=== PATIENT | female | born 1985 | race African-American/Black ===

== ENCOUNTER 2022-05-20 08:14 | Emergency (ER) | payer MEDICAID ==
[2022-05-20] MEDS ORDERED: Lorazepam 1 MG TAB ONE (08:55)
[2022-05-20] MEDS ORDERED: predniSONE 20 MG TAB ONE (08:56)
[2022-05-20] MEDS ORDERED: Albuterol 200 PUFF (6.7GM INHALER) ONE (08:56)
[2022-05-20] MEDS ORDERED: ALPRAZolam 0.5 MG TAB ONE (08:56)
[2022-05-20 10:24] LABS: Pregnancy Test - Urine (BHCG) Negative (Negative); Pregu Control Background? CLEAR/WHITE (CLR/WHITE); Pregu Control Bar Appear? YES (CONTROL BAR); Specific Gravity 1.015 (1.002-1.036)
== END 2022-05-20 11:09 | disposition home or self-care (01) ==
LOC: MADERS 08:14
DX: J45.901 Unspecified asthma with (acute) exacerbation (principal); F41.9 Anxiety disorder, unspecified
CPT/HCPCS: 36415; 71046; 81025; 84484; 93005; 94760; J7512

== ENCOUNTER 2022-05-21 12:26 | Emergency (ER) | payer MEDICAID, SELFPAY ==
[~2022-05-21 12:26] MED LIST: Iopamidol 370 76% 100 ML VIAL ONE; Sodium Chloride 0.9% 1,000 ML BAG ONE
[2022-05-21] MEDS ORDERED: Sodium Chloride 0.9% 1,000 ML ONE (12:55)
[2022-05-21] MEDS ORDERED: Haloperidol Lactate 5 MG/ML VIAL ONE (12:55)
[2022-05-21] MEDS ORDERED: Ondansetron PF 4 MG/2 ML Vial ONE (12:55)
[2022-05-21 13:07] LABS: Band 1 % (5-11); Hemoglobin 14.7 g/dL (12.0-16.0); Lymphocytes 27 % (21-51); MDiff Complete? YES; Mean Corpuscular HGB CONC 32.5 g/dL (32.0-36.0); Mean Corpuscular Hemoglobin 29.1 pg (27.0-31.0); Mean Corpuscular Volume 89.5 fl (78.0-98.0); Monocytes 5 % (0-10); Neutrophil 67 % (42-75); Platelet Count 298 thou/uL (130-400); RBC Distribution Width 11.8 % (11.5-14.5); Red Blood Cell (RBC) Count 5.04 mill/uL (4.20-5.40); White Blood Cell (WBC) Count 6.1 thou/uL (4.8-10.8)
[2022-05-21] MEDS ORDERED: Lidocaine Viscous Sol 2% 15 ml UD Cup ONE (13:11)
[2022-05-21] MEDS ORDERED: Mag-Al Plus 1200 MG/1200 MG/120 MG/30 ML UDCUP ONE (13:11)
[2022-05-21] MEDS ORDERED: Promethazine HCl 25 MG/ML VIAL ONE (13:16)
[2022-05-21 13:21] LABS: ALT (SGPT) 19 U/L (8-55); AST (SGOT) 19 U/L (5-34); Albumin 4.2 g/dL (3.5-5.0); Alkaline Phosphatase 22 U/L (40-110); Anion Gap 16 mmol/L (10-20); BUN (Urea Nitrogen) 6 mg/dL (7.0-18.7); Bilirubin, Total 0.3 mg/dL (0.2-1.2); CK (CPK) 71 U/L (29-168); Calc. Creatinine Clearance 0 mL/min (70-130); Calcium 9.5 mg/dL (7.8-10.44); Carbon Dioxide 23 mmol/L (22-29); Chloride 107 mmol/L (98-107); Estimated GFR 94; Globulin 3.5 g/dL (2.4-3.5); Glucose 100 mg/dL (70-105); Potassium 3.6 mmol/L (3.5-5.1); Protein, Total 7.7 g/dL (6.0-8.3); Sodium 142 mmol/L (136-145)
[2022-05-21 13:30] LABS: Lipase 17 U/L (8-78)
[2022-05-21] MEDS ORDERED: diphenhydrAMINE 50 MG/ML VIAL ONE (13:32)
[2022-05-21] MEDS ORDERED: Pantoprazole 40 MG VIAL ONE (14:02)
[2022-05-21] MEDS ORDERED: Sucralfate 1 GM TAB ONE (15:21)
[2022-05-21 15:30] LABS: Bilirubin Negative (Negative); Blood, Urine Negative (Negative); Clarity Clear (Clear); Glucose, Urine (Dipstick) Negative (Negative); Ketone, Urine Negative (Negative); Leukocyte Negative (Negative); Nitrite Negative (Negative); Protein, Urine (Dipstick) Negative (Neg-Trace); Urobilinogen 0.2 mg/dL (Less than 2)
[2022-05-21 15:35] LABS: Pregnancy Test - Urine (BHCG) Negative (Negative); Pregu Control Background? CLEAR/WHITE (CLR/WHITE); Pregu Control Bar Appear? YES (CONTROL BAR)
[2022-05-21 15:43] LABS: Amphetamine Not Detected (NotDetected); Barbiturates Screen Not Detected (NotDetected); Benzodiazepine Screen Detected (NotDetected); Cocaine Metabolite Screen Not Detected (NotDetected); Medtox Control Line Valid? VALID (VALID); Methadone Not Detected (NotDetected); Methamphetamine Not Detected (NotDetected); Opiate Screen Not Detected (NotDetected); Oxycodone Screen Not Detected (NotDetected); Phencyclidine (PCP) Not Detected (NotDetected); THC/Cannabinoid Screen Detected (NotDetected); Tricyclic Screen Not Detected (NotDetected)
== END 2022-05-21 15:58 | disposition home or self-care (01) ==
LOC: MADERS 12:26
DX: R07.89 Other chest pain (principal); R11.2 Nausea with vomiting, unspecified; K29.00 Acute gastritis without bleeding; F41.1 Generalized anxiety disorder; J45.909 Unspecified asthma, uncomplicated; K21.9 Gastro-esophageal reflux disease without esophagitis; Z79.899 Other long term (current) drug therapy
CPT/HCPCS: 36415; 74177; 80053; 80306; 81003; 81025; 82550; 83690; 84484; 85025; 85379; 96361; 96372; 96374; 96375; C9113; J1200; J1630; J2405; J2550; J7050; Q9967

== ENCOUNTER 2022-05-22 15:11 | Emergency (ER) | payer SELFPAY ==
[2022-05-22] MEDS ORDERED: diphenhydrAMINE 25 MG CAP ONE (15:33)
== END 2022-05-22 16:15 | disposition home or self-care (01) ==
LOC: MADERS 15:11
DX: R25.1 Tremor, unspecified (principal); T43.4X5A Adverse effect of butyrophenone and thiothixene neuroleptics, initial encounter; J45.909 Unspecified asthma, uncomplicated; Z79.899 Other long term (current) drug therapy; K21.9 Gastro-esophageal reflux disease without esophagitis; F17.210 Nicotine dependence, cigarettes, uncomplicated
CPT/HCPCS: 99283

== ENCOUNTER 2022-05-23 08:22 | Emergency (ER) | payer SELFPAY ==
[2022-05-23] MEDS ORDERED: hydrOXYzine 25 MG TAB ONE (09:05)
[2022-05-23] MEDS ORDERED: Lidocaine Viscous Sol 2% 15 ml UD Cup ONE (09:06)
[2022-05-23] MEDS ORDERED: Mag-Al Plus 1200 MG/1200 MG/120 MG/30 ML UDCUP ONE (09:06)
[2022-05-23 09:53] LABS: Mean Corpuscular HGB CONC 33.2 g/dL (32.0-36.0); Mean Corpuscular Hemoglobin 29.4 pg (27.0-31.0); Mean Corpuscular Volume 88.7 fl (78.0-98.0); Mean Platelet Volume 7.2 fL (7.4-10.4); Platelet Count 292 thou/uL (130-400); RBC Distribution Width 11.7 % (11.5-14.5); Red Blood Cell (RBC) Count 4.76 mill/uL (4.20-5.40); White Blood Cell (WBC) Count 6.6 thou/uL (4.8-10.8)
[2022-05-23] MEDS ORDERED: Ondansetron ODT 4 MG TAB ONE (09:57)
[2022-05-23] MEDS ORDERED: Famotidine/PF 20 mg/2ml Vial ONE (09:57)
[2022-05-23 10:04] LABS: ALT (SGPT) 21 U/L (8-55); AST (SGOT) 27 U/L (5-34); Alkaline Phosphatase 22 U/L (40-110); Anion Gap 14 mmol/L (10-20); BHCG - Serum Negative (NEGATIVE); BUN (Urea Nitrogen) 7 mg/dL (7.0-18.7); Bilirubin, Total 0.4 mg/dL (0.2-1.2); Calc. Creatinine Clearance 0 mL/min (70-130); Calcium 8.8 mg/dL (7.8-10.44); Carbon Dioxide 23 mmol/L (22-29); Chloride 104 mmol/L (98-107); Estimated GFR 96; Globulin 2.7 g/dL (2.4-3.5); Glucose 89 mg/dL (70-105); Lipase 16 U/L (8-78); Potassium 3.5 mmol/L (3.5-5.1); Pregs Control Background? CLEAR/WHITE (CLR/WHITE); Pregs Control Bar Appear? YES (CONTROL BAR); Protein, Total 6.7 g/dL (6.0-8.3); Sodium 137 mmol/L (136-145)
[2022-05-23 10:09] LABS: Anisocytosis SLIGHT = 6-15 cells (100X) (0-5/hpf); Band 2 % (5-11); Eosinophils 2 % (0-10); Lymphocytes 22 % (21-51); MDiff Complete? YES; Manual Diff?? YES; Monocytes 6 % (0-10); Neutrophil 68 % (42-75)
[2022-05-23 10:10] LABS: Platelet Morphology Comment Appears Adequate
[2022-05-23] MEDS ORDERED: Lactated Ringer's 1,000 ML ONE (11:06)
[2022-05-23] MEDS ORDERED: Morphine 4 MG/ML VIAL ONE (11:06)
[2022-05-23 13:02] LABS: Troponin I Less than 0.010 ng/mL (< 0.028)
== END 2022-05-23 13:40 | disposition home or self-care (01) ==
LOC: MADERS 08:22
DX: K29.00 Acute gastritis without bleeding (principal); J45.909 Unspecified asthma, uncomplicated; K21.9 Gastro-esophageal reflux disease without esophagitis; Z79.899 Other long term (current) drug therapy; F17.210 Nicotine dependence, cigarettes, uncomplicated
CPT/HCPCS: 71045; 80053; 83690; 84484; 84703; 85025; 85379; 93005; 94760; 96361; 96374; 96375; J2270; J7120; Q0162; S0028

== ENCOUNTER 2022-05-24 12:21 | Emergency (ER) | payer SELFPAY | END 2022-05-24 15:15 | disposition left against medical advice (07) | LOC: MADERS 12:21 | DX: R11.2 Nausea with vomiting, unspecified (principal); R07.89 Other chest pain; K21.9 Gastro-esophageal reflux disease without esophagitis; F17.210 Nicotine dependence, cigarettes, uncomplicated; J45.909 Unspecified asthma, uncomplicated; Z79.899 Other long term (current) drug therapy | CPT/HCPCS: 99284 ==